=== PATIENT | female | born 1965 | race Caucasian/White ===

== ENCOUNTER → 2024-02-05 13:44 | Outpatient (REF) | payer BC, SELFPAY | LOC: RAD 13:44 | PROVIDERS: ATTENDING PHYSICIAN Physician Assistant Medical; FAMILY PHYSICIAN Internal Medicine | DX: S89.92XA Unspecified injury of left lower leg, initial encounter (principal) | CPT/HCPCS: 73590 ==

== ENCOUNTER → 2024-08-31 08:28 | Outpatient (REF) | payer BC, SELFPAY | LOC: HWRAD 08:28 | PROVIDERS: ATTENDING PHYSICIAN Internal Medicine Rheumatology; FAMILY PHYSICIAN Student in an Organized Health Care Education/Training Program | DX: M35.9 Systemic involvement of connective tissue, unspecified (principal) | CPT/HCPCS: 76536 ==

== ENCOUNTER → 2024-10-01 17:27 | Outpatient (REF) | payer BC, OTHER, SELFPAY | LOC: CLAB 17:27 | PROVIDERS: ATTENDING PHYSICIAN Otolaryngology | DX: M35.00 Sjogren syndrome, unspecified (principal) | CPT/HCPCS: 88305 ==

== ENCOUNTER → 2025-02-09 16:47 | Outpatient (REF) | payer BC, SELFPAY | LOC: RAD 16:47 | PROVIDERS: ATTENDING PHYSICIAN Otolaryngology; FAMILY PHYSICIAN Student in an Organized Health Care Education/Training Program | DX: H93.13 Tinnitus, bilateral (principal) | CPT/HCPCS: 70496; 70498; Q9967 ==

== ENCOUNTER → 2025-03-11 14:38 | Outpatient (REF) | payer BC, SELFPAY | LOC: HWRAD 14:38 | PROVIDERS: ATTENDING PHYSICIAN Internal Medicine Critical Care Medicine; FAMILY PHYSICIAN Student in an Organized Health Care Education/Training Program | DX: R91.1 Solitary pulmonary nodule (principal) | CPT/HCPCS: 71250 ==

== ENCOUNTER → 2025-09-01 15:28 | Outpatient (REF) | payer BC, SELFPAY | LOC: HWRAD 15:28 | PROVIDERS: ATTENDING PHYSICIAN Internal Medicine Critical Care Medicine; FAMILY PHYSICIAN Student in an Organized Health Care Education/Training Program | DX: R91.8 Other nonspecific abnormal finding of lung field (principal) | CPT/HCPCS: 71250 ==